=== PATIENT | female | born 1940 | race Caucasian/White ===

== ENCOUNTER 2016-07-30 09:49 | Emergency (ER) | payer OTHER ==
[~2016-07-30] VITALS: Ht 157.5 cm; Wt 108.9 kg
[~2016-07-30 09:49] MED LIST: ALLOPURINOL300 MG PO; AMITRIPTYLINE H25 MG PO; ATORVASTATIN CA80 MG PO; CALCIUM 500 +1 EACH PO; CLONIDINE HCL0.2 MG PO; COMPLETE MULTI1 EAC1 PO; DOXYCYCLINE HY100 M3 PO; FENOFIBRATE160 M1 PO; FLEXERIL10 MG PO; Flovent 110 mcg IH; GLIPIZIDE XL10 MG PO; HYDROCODON-ACE1 EAC7 PO; LASIX20 MG PO; LEVOTHYROXINE25 MCG PO; LIPITOR40 MG PO; LISINOPRIL40 MG PO; MELOXICAM7.5 MG PO; REQUIP0.5 MG PO; VITAMIN D31000 UNI2 PO; Vitamin D, Drisdol PO; ZANAFLEX2 M1 PO
[2016-07-30] MEDS ORDERED: GABAPENTIN300 MG PO (10:41)
[2016-07-30] MEDS ORDERED: PREDNISONE20 MG PO (10:41)
[2016-07-30 11:18] VITALS: BP 181/87
== END 2016-07-30 11:20 | disposition home or self-care (01) ==
LOC: EME 09:49
DX: G62.9 Polyneuropathy, unspecified (principal); M79.672 Pain in left foot; J45.909 Unspecified asthma, uncomplicated; J44.9 Chronic obstructive pulmonary disease, unspecified; E78.5 Hyperlipidemia, unspecified; E11.9 Type 2 diabetes mellitus without complications; F17.200 Nicotine dependence, unspecified, uncomplicated
CPT/HCPCS: 99281; 99283

== ENCOUNTER → 2017-04-06 | Outpatient (CLI) | payer MEDICARE, OTHER ==
[~2017-04-06] MED LIST changes: +ELAVIL25 MG PO; +GABAPENTIN300 MG PO; +GLUCOPHAGE1000 MG PO; +GLUCOPHAGE500 MG PO; +GLUCOTROL XL10 MG PO; +LEVO-T50 MCG PO; +LORCET 5-325 M1 EACH PO; +PREDNISONE20 MG PO; +ZESTRIL40 MG PO; +ZYLOPRIM300 MG PO
== END | disposition home or self-care (01) ==
LOC: CDC 14:29
DX: Z01.810 Encounter for preprocedural cardiovascular examination (principal); M65.312 Trigger thumb, left thumb
CPT/HCPCS: 93000

== ENCOUNTER 2017-04-12 12:08 | Day surgery (SDC) | payer OTHER ==
[~2017-04-12] VITALS: Ht 162.6 cm; Wt 109.3 kg
[2017-04-12 13:12] VITALS: BP 157/80
[2017-04-12 13:12] LABS: POINT-OF-CARE METER ID UU14174212
[2017-04-12 15:48] LABS: POINT-OF-CARE METER ID UU13113675
[2017-04-12 16:10] VITALS: BP 173/88
== END 2017-04-12 16:54 | disposition home or self-care (01) ==
LOC: SDC 12:08
PROVIDERS: Orthopaedic Surgery Hand Surgery
PROC: 0LN80ZZ Release Left Hand Tendon, Open Approach (ICD-10-PCS; principal; 2017-04-12)
DX: M65.842 Other synovitis and tenosynovitis, left hand (principal); I12.9 Hypertensive chronic kidney disease with stage 1 through stage 4 chronic kidney disease, or unspecified chronic kidney disease; E11.22 Type 2 diabetes mellitus with diabetic chronic kidney disease; N18.3 Chronic kidney disease, stage 3 (moderate); J44.9 Chronic obstructive pulmonary disease, unspecified; R06.9 Unspecified abnormalities of breathing; E78.00 Pure hypercholesterolemia, unspecified; Z79.84 Long term (current) use of oral hypoglycemic drugs; F32.9 Major depressive disorder, single episode, unspecified; Z88.0 Allergy status to penicillin
CPT/HCPCS: 82948; S0020